=== PATIENT | female | born 1995 | race Caucasian/White ===

== ENCOUNTER 2024-05-15 12:45 | Emergency (ER) | payer OTHER ==
[~2024-05-15] VITALS: Ht 165.1 cm; Wt 68.0 kg
[2024-05-15 12:48] VITALS: BP 126/81; PULSE 85; RESP 16; TEMP 36.7; O2SAT 99
[2024-05-15 13:08] VITALS: TEMP 98.1
[2024-05-15] MEDS: ACETAMINOPHEN 325MG TABLET PO ONE (13:08)
== END 2024-05-15 13:10 ==
LOC: ER 12:45
DX: S09.90XA Unspecified injury of head, initial encounter (principal); Z86.73 Personal history of transient ischemic attack (TIA), and cerebral infarction without residual deficits; W22.8XXA Striking against or struck by other objects, initial encounter; Y93.89 Activity, other specified; Y92.148 Other place in prison as the place of occurrence of the external cause; Y99.8 Other external cause status
CPT/HCPCS: 99283